=== PATIENT | male | born 1970 | race Caucasian/White ===

== ENCOUNTER → 2021-05-12 | Outpatient (CLI) | payer BC ==
--- NOTE | 2021-05-12 15:03 | ECHOS ---
STRESS ECHOCARDIOGRAM INDICATIONS: Chest pain BASELINE HEART RATE: 88 BASELINE BLOOD PRESSURE: 102/56 MAXIMUM HEART RATE: 150 MAXIMUM BLOOD PRESSURE: 190/90 85% MPHR: 143 100% MPHR: 168 METS: 11.3 MAXIMUM STAGE REACHED: 3 TOTAL EXERCISE TIME: 9:41 CLINICAL INFORMATION: Baseline rhythm is sinus mechanism, rate of 88, normal axis and intervals, poor R-wave progression. Baseline blood pressure 102/56 mmHg. Patient exercised on Yandel protocol for 9 minutes 41 seconds and reached a peak rate of 150 beats per minute, which is equal to 89% of maximum predicted heart rate. Peak blood pressure 190/90 mmHg. Test was terminated secondary to fatigue. There was no chest pain. Electrocardiograph monitoring revealed [address]-segment depression in inferolateral leads with resolution recovery. FINDINGS: Left ventricular cavity is normal. Stress images reveal normal wall thickening reaching with no hypokinesis or dyskinesis. CONCLUSION: 1. Good exercise tolerance with borderline positive electrocardiograph stress testing and occasional PVCs. 2. Normal stress echocardiogram with no evidence of stress-induced ischemia. MMODL / IJN: [id number] / MTDD
== END | disposition home or self-care (01) ==
LOC: RADNMMAIN 09:00
PROVIDERS: ATTEND Internal Medicine
DX: I49.3 Ventricular premature depolarization (principal)
CPT/HCPCS: 93351